=== PATIENT | male | born 2000 | race Two or more races ===

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

== ENCOUNTER 2021-07-08 15:58 | Emergency (ER) | payer MEDICAID ==
[~2021-07-08] VITALS: Ht 162.6 cm; Wt 80.0 kg
[2021-07-08 16:08] VITALS: BP 125/74
== END 2021-07-08 20:47 | disposition left against medical advice (07) ==
LOC: ER 15:58
DX: Z53.21 Procedure and treatment not carried out due to patient leaving prior to being seen by health care provider (principal)